=== PATIENT | female | born 1990 | race Caucasian/White ===

== ENCOUNTER 2018-04-21 20:09 | Emergency (ER) | payer BC ==
[2018-04-21] MEDS ORDERED: Ondansetron 4 MG/2 ML SDV IVPUSH ONE (21:04)
[2018-04-21] MEDS ORDERED: Sodium Chloride 0.9% 1,000 ML IV ONE ×2 (21:04→22:59)
--- NOTE | 2018-04-21 21:05 | EDM.PDOC ---
ED HPI GENERAL MEDICAL PROBLEM - General Chief Complaint: Gastrointestinal Problem Stated Complaint: NAUSEATED; 8 WEEK Time Seen by Provider: 04/21/18 21:05 Source of Information: Reports: Patient - History of Present Illness INITIAL COMMENTS - FREE TEXT/NARRATIVE: HISTORY AND PHYSICAL: History of present illness: [Patient with 8 week by ultrasound performed through [facility] followed by Dr. Hernandez, patient is G4 P 2 11 Presents with intractable nausea no fever chills sweats no chest pain shortness breath headache dizziness palpitation no bowel or complains of frequency and dysuria She has 2 normal vaginal deliveries at term no complications history of previous blighted ovum No vaginal fluid leakage low back pain and pressure spotting bleeding or discharge ] Review of systems: As per history of present illness and below otherwise all systems reviewed and negative. Past medical history: As per history of present illness and as reviewed below otherwise noncontributory. Surgical history: As per history of present illness and as reviewed below otherwise noncontributory. Social history: No reported history of drug or alcohol abuse. Family history: As per history of present illness and as reviewed below otherwise noncontributory. Physical exam: HEENT: Atraumatic, normocephalic, pupils reactive, negative for conjunctival pallor or scleral icterus, mucous membranes moist, throat clear, neck supple, nontender, trachea midline. Lungs: Clear to auscultation, breath sounds equal bilaterally, chest nontender. Heart: S1S2, regular, negative for clicks, rubs, or JVD. Abdomen: Soft, nondistended, nontender. Negative for masses or hepatosplenomegaly. Negative for costovertebral tenderness. Pelvis: Stable nontender. Genitourinary: Deferred. Rectal: Deferred. Extremities: Atraumatic, negative for cords or calf pain. Neurovascular unremarkable. Neuro: Awake, alert, oriented. Cranial nerves II through XII unremarkable. Cerebellum unremarkable. Motor and sensory unremarkable throughout. Exam nonfocal. Diagnostics: CBC CMP [UA HCG ABO type ] Patient refused blood typing and vaginal exam Therapeutics: [1 L normal saline 2 Zofran 8 mg IV Macrobid 100 by mouth twice a day #14 no refill Zofran 8 mg ] Impression: [ vomiting in ] Hematuria possible UTI culture following Definitive disposition and diagnosis as appropriate pending reevaluation and review of above. 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: Endocrine/Metabolic History: Reports: Hypothyroidism - Infectious Disease History Infectious Disease History: Reports: Chicken Pox Social & Family History - Tobacco Use Smoking Status *Q: Never Smoker - Caffeine Use Caffeine Use: Reports: None - Recreational Drug Use Recreational Drug Use: No ED ROS GENERAL - Review of Systems Review Of Systems: See Below ED EXAM, GENERAL - Physical Exam Exam: See Below Course - Vital Signs Last Recorded V/S: Last Vital Signs Temp 98.3 F 04/21/18 20:32 Pulse 96 04/21/18 20:32 Resp 16 04/21/18 20:32 BP 113/70 04/21/18 20:32 Pulse Ox 96 04/21/18 20:32 - Orders/Labs/Meds Orders: Active Orders 24 hr Category Date Time Status ABO/RH TYPE [BBK] Stat Lab 04/21/18 22:53 Ordered CULTURE URINE [RM] Stat Lab 04/21/18 21:44 Received HCG QUALITATIVE,URINE [URCHEM] Stat Lab 04/21/18 21:44 Ordered UA W/MICROSCOPIC [URIN] Stat Lab 04/21/18 21:44 Ordered Sodium Chloride 0.9% [Normal Saline] 1,000 ml Med 04/21/18 22:59 Active IV STAT Medication Orders Sodium Chloride (Normal Saline) 1,000 mls @ 999 mls/hr IV STAT ONE Stop: 04/21/18 23:59 Last Admin: 04/21/18 23:04 Dose: 999 mls/hr Labs: Laboratory Tests 04/21/18 04/21/18 04/21/18 Range/Units 21:25 21:25 21:25 WBC 16.28 H (4.0-11.0) K/uL RBC 4.35 (4.30-5.90) M/uL Hgb 13.2 (12.0-16.0) g/dL Hct 37.1 (36.0-46.0) % MCV 85.3 (80.0-98.0) fL MCH 30.3 (27.0-32.0) pg MCHC 35.6 (31.0-37.0) g/dL RDW Std Deviation 37.2 (28.0-62.0) fl RDW Coeff of Casie 12 (11.0-15.0) % Plt Count 173 (150-400) K/uL MPV 10.80 (7.40-12.00) fL Neut % (Auto) 87.4 H (48.0-80.0) % Lymph % (Auto) 7.4 L (16.0-40.0) % [place] % (Auto) 4.7 (0.0-15.0) % Eos % (Auto) 0.4 (0.0-7.0) % Baso % (Auto) 0.1 (0.0-1.5) % Neut # (Auto) 14.2 H (1.4-5.7) K/uL Lymph # (Auto) 1.2 (0.6-2.4) K/uL [place] # (Auto) 0.8 (0.0-0.8) K/uL Eos # (Auto) 0.1 (0.0-0.7) K/uL Baso # (Auto) 0.0 (0.0-0.1) K/uL Nucleated RBC % 0.0 /100WBC Nucleated RBCs # 0 K/uL Sodium 138 (136-145) mmol/L Potassium 3.7 (3.5-5.1) mmol/L Chloride 103 (98-107) mmol/L Carbon Dioxide 23.0 (21.0-32.0) mmol/L BUN 12 (7.0-18.0) mg/dL Creatinine 0.9 (0.6-1.0) mg/dL Est Cr Clr Drug Dosing 72.95 mL/min Estimated GFR (MDRD) > 60.0 ml/min Glucose 80 (74-106) mg/dL Calcium 8.9 (8.5-10.1) mg/dL Total Bilirubin 0.7 (0.2-1.0) mg/dL AST 29 (15-37) IU/L ALT 54 (14-63) IU/L Alkaline Phosphatase 51 (46-116) U/L Creatine Kinase (26-308) U/L Total Protein 7.0 (6.4-8.2) g/dL Albumin 3.9 (3.4-5.0) g/dL Globulin 3.1 (2.0-3.5) g/dL Albumin/Globulin Ratio 1.3 (1.3-2.8) HCG, Quant 119694.0 mIU/mL Urine Color Urine Appearance Urine pH (5.0-8.0) Ur Specific [place] (1.001-1.035) Urine Protein (NEGATIVE) mg/dL Urine Glucose (UA) (NEGATIVE) mg/dL Urine Ketones (NEGATIVE) mg/dL Urine Occult Blood (NEGATIVE) Urine Nitrite (NEGATIVE) Urine Bilirubin (NEGATIVE) Urine Ictotest Urine Urobilinogen (<2.0) EU/dL Ur Leukocyte Esterase (NEGATIVE) Urine RBC (0-2/HPF) Urine WBC (0-5/HPF) Ur Epithelial Cells (NONE-FEW) Urine Bacteria (NEGATIVE) Urine Mucus (NONE-MOD) Urine HCG, Qual (NEGATIVE) 04/21/18 04/21/18 04/21/18 Range/Units 21:25 21:44 21:44 WBC (4.0-11.0) K/uL RBC (4.30-5.90) M/uL Hgb (12.0-16.0) g/dL Hct (36.0-46.0) % MCV (80.0-98.0) fL MCH (27.0-32.0) pg MCHC (31.0-37.0) g/dL RDW Std Deviation (28.0-62.0) fl RDW Coeff of Casie (11.0-15.0) % Plt Count (150-400) K/uL MPV (7.40-12.00) fL Neut % (Auto) (48.0-80.0) % Lymph % (Auto) (16.0-40.0) % [place] % (Auto) (0.0-15.0) % Eos % (Auto) (0.0-7.0) % Baso % (Auto) (0.0-1.5) % Neut # (Auto) (1.4-5.7) K/uL Lymph # (Auto) (0.6-2.4) K/uL [place] # (Auto) (0.0-0.8) K/uL Eos # (Auto) (0.0-0.7) K/uL Baso # (Auto) (0.0-0.1) K/uL Nucleated RBC % /100WBC Nucleated RBCs # K/uL Sodium (136-145) mmol/L Potassium (3.5-5.1) mmol/L Chloride (98-107) mmol/L Carbon Dioxide (21.0-32.0) mmol/L BUN (7.0-18.0) mg/dL Creatinine (0.6-1.0) mg/dL Est Cr Clr Drug Dosing mL/min Estimated GFR (MDRD) ml/min Glucose (74-106) mg/dL Calcium (8.5-10.1) mg/dL Total Bilirubin (0.2-1.0) mg/dL AST (15-37) IU/L ALT (14-63) IU/L Alkaline Phosphatase (46-116) U/L Creatine Kinase 48 (26-308) U/L Total Protein (6.4-8.2) g/dL Albumin (3.4-5.0) g/dL Globulin (2.0-3.5) g/dL Albumin/Globulin Ratio (1.3-2.8) HCG, Quant mIU/mL Urine Color YELLOW Urine Appearance CLEAR Urine pH 7.0 (5.0-8.0) Ur Specific [place] 1.020 (1.001-1.035) Urine Protein TRACE (NEGATIVE) mg/dL Urine Glucose (UA) NEGATIVE (NEGATIVE) mg/dL Urine Ketones >=80 (NEGATIVE) mg/dL Urine Occult Blood LARGE H (NEGATIVE) Urine Nitrite NEGATIVE (NEGATIVE) Urine Bilirubin SMALL H (NEGATIVE) Urine Ictotest NEGATIVE Urine Urobilinogen 1.0 (<2.0) EU/dL Ur Leukocyte Esterase NEGATIVE (NEGATIVE) Urine RBC 14-18 (0-2/HPF) Urine WBC 2-4 (0-5/HPF) Ur Epithelial Cells MANY (NONE-FEW) Urine Bacteria 2+ H (NEGATIVE) Urine Mucus MODERATE (NONE-MOD) Urine HCG, Qual POSITIVE (NEGATIVE) Meds: Medications Generic Name Dose Route Start Last Admin Trade Name Freq PRN Reason Stop Dose Admin Sodium Chloride 1,000 mls @ 999 mls/hr 04/21/18 22:59 04/21/18 23:04 Normal Saline IV 04/21/18 23:59 999 mls/hr STAT ONE Administration Discontinued Medications Generic Name Dose Route Start Last Admin Trade Name Freq PRN Reason Stop Dose Admin Acetaminophen 1,000 mg 04/21/18 21:35 04/21/18 21:41 Tylenol Extra Strength PO 04/21/18 21:36 1,000 mg ONETIME ONE Administration Acetaminophen Confirm 04/21/18 21:42 04/21/18 22:00 Tylenol Extra Strength Administered 04/21/18 21:43 Not Given Dose 500 mg .ROUTE .STK-MED ONE Sodium Chloride 1,000 mls @ 999 mls/hr 04/21/18 21:04 04/21/18 21:30 Normal Saline IV 04/21/18 22:04 999 mls/hr STAT ONE Administration Ondansetron HCl 8 mg 04/21/18 21:04 04/21/18 21:30 Zofran IVPUSH 04/21/18 21:05 8 mg ONETIME ONE Administration Departure - Departure Time of Disposition: 23:26 Disposition: Home, Self-Care 01 Condition: Good Clinical Impression: Vomiting of - Discharge Information Referrals: PCP,None [Primary Care Provider] - Forms: ED Department Discharge Additional Instructions: Medication as prescribed Return if symptoms persist or worsen Follow-up with OB as scheduled sooner as needed The following information is given to patients seen in the emergency department who are being discharged to home. This information is to outline your options for follow-up care. We provide all patients seen in our emergency department with a follow-up referral. The need for follow-up, as well as the timing and circumstances, are variable depending upon the specifics of your emergency department visit. If you don't have a primary care physician on staff, we will provide you with a referral. We always advise you to contact your personal physician following an emergency department visit to inform them of the circumstance of the visit and for follow-up with them and/or the need for any referrals to a consulting specialist. The emergency department will also refer you to a specialist when appropriate. This referral assures that you have the opportunity for follow-up care with a specialist. All of these measure are taken in an effort to provide you with optimal care, which includes your follow-up. Under all circumstances we always encourage you to contact your private physician who remains a resource for coordinating your care. When calling for follow-up care, please make the office aware that this follow-up is from your recent emergency room visit. If for any reason you are refused follow-up, please contact the [facility] emergency department at and asked to speak to the emergency department charge nurse. - My Orders Last 24 Hours: My Active Orders 04/21/18 21:44 CULTURE URINE [RM] Stat HCG QUALITATIVE,URINE [URCHEM] Stat UA W/MICROSCOPIC [URIN] Stat 04/21/18 22:53 ABO/RH TYPE [BBK] Stat 04/21/18 22:59 Sodium Chloride 0.9% [Normal Saline] 1,000 ml IV STAT - Assessment/Plan Last 24 Hours: My Active Orders 04/21/18 21:44 CULTURE URINE [RM] Stat HCG QUALITATIVE,URINE [URCHEM] Stat UA W/MICROSCOPIC [URIN] Stat 04/21/18 22:53 ABO/RH TYPE [BBK] Stat 04/21/18 22:59 Sodium Chloride 0.9% [Normal Saline] 1,000 ml IV STAT
[2018-04-21] MEDS ORDERED: Acetaminophen 500 MG Tab PO ONE (21:35)
[2018-04-21] MEDS ORDERED: Acetaminophen 500 MG Tab ONE (21:42)
[2018-04-21 22:19] LABS: CHLORIDE,CL 103 mmol/L (98-107); SODIUM,NA 138 mmol/L (136-145)
[2018-04-21] MEDS ORDERED: Nitrofurantoin Monohydrate/Macrocrystalline 100 MG Cap PO ONE (23:30)
== END 2018-04-21 23:56 | disposition home or self-care (01) ==
LOC: MW.ED 20:09
DX: O21.8 Other vomiting complicating pregnancy (principal); Z3A.08 8 weeks gestation of pregnancy; Z79.899 Other long term (current) drug therapy
CPT/HCPCS: 36415; 80053; 81001; 81025; 82550; 84702; 85025; 87086; 96361; 96374; 99284; A9270; J2405; J7040; 99283

== ENCOUNTER 2018-11-21 02:37 | Inpatient (IN) | payer BC ==
[2018-11-21] MEDS ORDERED: Nalbuphine 10 MG/1 ML Vial IVPUSH PRN (02:57)
[2018-11-21] MEDS ORDERED: Methylergonovine 0.2 MG/1 ML Amp IM PRN (02:57)
[2018-11-21] MEDS ORDERED: Carboprost Tromethamine 250 MCG/1 ML Amp IM PRN (02:57)
[2018-11-21] MEDS ORDERED: Sodium Chloride 0.9% 2.5 ML Syringe FLUSH PRN (02:57)
[2018-11-21] MEDS ORDERED: Sodium Chloride 0.9% 10 ML Syringe FLUSH PRN (02:57)
[2018-11-21] MEDS ORDERED: Tranexamic Acid 1,000 MG in Sodium Chloride 0.9% 100 ML IV PRN (02:57)
[2018-11-21] MEDS ORDERED: Lidocaine 1% 50 ML MDV INJECT PRN (02:57)
[2018-11-21] MEDS ORDERED: Water For Irrigation,Sterile 1,000 ML Container IRR PRN (02:57)
[2018-11-21] MEDS ORDERED: Misoprostol 200 MCG Tab PO PRN (02:57)
[2018-11-21] MEDS ORDERED: Butorphanol 1 MG/ML SDV IVPUSH PRN (02:57)
[2018-11-21] MEDS ORDERED: Terbutaline 1 MG/ML SDV SUBCUT PRN (03:00)
[2018-11-21] MEDS ORDERED: Oxytocin/0.9 % Sodium Chloride 30 UNIT/500 ML BAG IV SCH ×2 (03:00)
[2018-11-21] MEDS ORDERED: Misoprostol 25 MCG (1/4 of 100 MCG) Tab VAG PRN ×2 (03:00)
[2018-11-21] MEDS: Lactated Ringers 1,000 ML IV SCH ×2 (08:35→09:53)
[2018-11-21] MEDS ORDERED: diphenhydrAMINE 50 MG/ML SDV IVPUSH PRN (08:47)
[2018-11-21] MEDS ORDERED: fentaNYL 100 MCG/2 ML SDV ONE (09:24)
[2018-11-21] MEDS ORDERED: Ropivacaine HCl/PF 100 ML ONE (09:25)
--- NOTE | 2018-11-21 10:19 | PCM.PREANE ---
Preanesthetic Assessment - Anesthesia/Transfusion/Family Hx Anesthesia History: Prior Anesthesia Without Reaction Family History of Anesthesia Reaction: No Transfusion History: No Prior Transfusion(s) - Review of Systems General: Other (08/20 pain with contractions) Pulmonary: No Symptoms Cardiovascular: No Symptoms Gastrointestinal: No Symptoms Neurological: No Symptoms Other: Reports: Anxiety - Physical Assessment NPO Status Date: 11/21/18 NPO Status Time: 03:00 (sips/chips) Blood Pressure: 116/68 Height: 5 ft 2 in Weight: 146 lb ASA Class: 2 Mental Status: Alert & Oriented x3 Airway Class: Mallampati = 2 Dentition: Reports: Normal Dentition Thyro-Mental Finger Breadths: 3 Mouth Opening Finger Breadths: 3 ROM/Head Extension: Full Lungs: Clear to Auscultation, Normal Respiratory Effort Cardiovascular: Regular Rate, Regular Rhythm - Lab Values: Laboratory Last Values WBC 8.81 K/uL (4.0-11.0) 11/21/18 03:10 RBC 3.91 M/uL (4.30-5.90) L 11/21/18 03:10 Hgb 10.8 g/dL (12.0-16.0) L 11/21/18 03:10 Hct 32.8 % (36.0-46.0) L 11/21/18 03:10 MCV 83.9 fL (80.0-98.0) 11/21/18 03:10 MCH 27.6 pg (27.0-32.0) 11/21/18 03:10 MCHC 32.9 g/dL (31.0-37.0) 11/21/18 03:10 RDW Std Deviation 41.3 fl (28.0-62.0) 11/21/18 03:10 RDW Coeff of Casie 14 % (11.0-15.0) 11/21/18 03:10 Plt Count 141 K/uL (150-400) L 11/21/18 03:10 MPV 10.60 fL (7.40-12.00) 11/21/18 03:10 Nucleated RBC % 0.0 /100WBC 11/21/18 03:10 Nucleated RBCs # 0 K/uL 11/21/18 03:10 Blood Type O POSITIVE 11/21/18 03:10 Antibody Screen NEGATIVE 11/21/18 03:10 - Allergies Allergies/Adverse Reactions: Allergies Allergy/AdvReac Type Severity Reaction Status Date / Time No Known Allergies Allergy Verified 04/21/18 20:35 - Blood Blood Available: No Product(s) Available: None - Anesthesia Plan Free Text/Narrative:: Labor Epidural with possible SAB if pt progress too quickly - Acknowledgements Anesthesia Type Planned: Spinal, Epidural Pt an Appropriate Candidate for the Planned Anesthesia: Yes Alternatives and Risks of Anesthesia Discussed w Pt/Guardian: Yes Pt/Guardian Understands and Agrees with Anesthesia Plan: Yes PreAnesthesia Questionnaire - Past Health History Medical/Surgical History: Denies 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: 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/Metabolic History: Reports: Hypothyroidism - Infectious Disease History Infectious Disease History: Reports: Chicken Pox - SUBSTANCE USE Smoking Status *Q: Never Smoker Second Hand Smoke Exposure: No Recreational Drug Use History: No - HOME MEDS Home Medications: Home Meds Levothyroxine Sodium [Levoxyl] 50 mcg PO DAILY 04/21/18 [History] Ondansetron [Zofran ODT] 4 mg PO Q6H PRN 04/21/18 [History] Pnv No.95/Ferrous Fum/Folic AC [ Multivitamin Tablet] 1 each PO DAILY [History] - CURRENT (IN HOUSE) MEDS Current Meds: Current Medications Butorphanol Tartrate (Stadol) 1 mg IVPUSH Q1H PRN PRN Reason: Pain Carboprost Tromethamine (Hemabate Ds) 250 mcg IM ASDIRECTED PRN PRN Reason: Post Hemorrhage Diphenhydramine HCl (Benadryl) 25 mg IVPUSH Q6H PRN PRN Reason: Itching Lactated Ringer's (Ringers, Lactated) 1,000 mls @ 150 mls/hr IV ASDIRECTED OSVALDO Last Admin: 11/21/18 09:53 Dose: 150 mls/hr Oxytocin/Sodium Chloride (Oxytocin 30 Unit/500 Ml-Ns) 30 unit in 500 mls @ 500 mls/hr IV TITRATE OSVALDO Tranexamic Acid 1,000 mg/ (Sodium Chloride) 110 mls @ 660 mls/hr IV ONETIME PRN PRN Reason: Bleeding Oxytocin/Sodium Chloride (Oxytocin 30 Unit/500 Ml-Ns) 30 unit in 500 mls @ 2 mls/hr IV TITRATE OSVALDO; Protocol Last Titration: 11/21/18 09:37 Dose: 1 mls/hr Lidocaine HCl (Xylocaine 1%) 50 ml INJECT ONETIME PRN PRN Reason: Laceration repair Methylergonovine Maleate (Methergine) 0.2 mg IM ASDIRECTED PRN PRN Reason: Post Hemorrhage Misoprostol (Cytotec) 200 mcg PO ONETIME PRN PRN Reason: Post Hemorrhage Misoprostol (Cytotec) 25 mcg VAG ONETIME PRN PRN Reason: Cervical Ripening Misoprostol (Cytotec) 25 mcg VAG Q4H PRN PRN Reason: Cervical Ripening Last Admin: 11/21/18 03:41 Dose: 25 mcg Nalbuphine HCl (Nubain) 10 mg IVPUSH Q1H PRN PRN Reason: Pain (severe 7-10) Last Admin: 11/21/18 08:54 Dose: 10 mg Sodium Chloride (Saline Flush) 10 ml FLUSH ASDIRECTED PRN PRN Reason: Keep Vein Open Sodium Chloride (Saline Flush) 2.5 ml FLUSH ASDIRECTED PRN PRN Reason: Keep Vein Open Sterile Water (Sterile Water For Irrigation) 1,000 ml IRR ASDIRECTED PRN PRN Reason: delivery Terbutaline Sulfate (Brethine) 0.25 mg SUBCUT ASDIRECTED PRN PRN Reason: Tacysystole Discontinued Medications Fentanyl (Sublimaze) Confirm Administered Dose 100 mcg .ROUTE .STK-MED ONE Stop: 11/21/18 09:25 Ropivacaine (Naropin 0.2%) Confirm Administered Dose 100 mls @ as directed .ROUTE .STK-MED ONE Stop: 11/21/18 09:26
--- NOTE | 2018-11-21 10:30 | PCM.DEL ---
L & D Note - General Info Date of Service: 11/21/18 - Delivery Note Labor: Induced by Oxytocin Cervical Ripening Method: Prostaglandin E2 Delivery Outcome: Livebirth Infant Delivery Method: Spontaneous Vaginal Delivery-Single Infant Delivery Mode: Spontaneous Presentation: Right Occiput Anterior (SHARITA) Nuchal Cord: Present, Reduced Prep: Povidone-Iodine (Betadine Anesthesia Type: Epidural Amniotic Fluid Description: Clear Episiotomy Type: None Laceration: 1st Degree, Perineal Suture type: Vicryl Suture size: 3-0 Placenta: Intact, Spontaneous Cord: 3 Vessels Resuscitation Needed: No Score 1 min: 9 Score 5 min: 9 Induction Criteria - Jeffries Score Jeffries Score Dilation: 1-2 cm Jeffries Score Effacement: 40-50% Jeffries Score 's Station: -3 Jeffries Score Consistency: Firm Jeffries Score Cervix Position: Midposition Jeffries Score Total: 3 Jeffries Score Presenting Part: Reports: Cephalic - Induction Gestational Age >/= 39 wks: No Medical Indication: Suspected cholestasis of Reassuring Monitoring Strip: Yes Absence of Tachy Systole: Yes - General Info Date of Service: 11/21/18 - Patient Data Vitals - Most Recent: Last Vital Signs Temp Pulse Resp BP 116/68 11/21/18 10:18 Pulse Ox Weight - Most Recent: 146 lb Lab Results Last 24 Hours: Laboratory Results - last 24 hr 11/21/18 11/21/18 Range/Units 03:10 03:10 WBC 8.81 (4.0-11.0) K/uL RBC 3.91 L (4.30-5.90) M/uL Hgb 10.8 L (12.0-16.0) g/dL Hct 32.8 L (36.0-46.0) % MCV 83.9 (80.0-98.0) fL MCH 27.6 (27.0-32.0) pg MCHC 32.9 (31.0-37.0) g/dL RDW Std Deviation 41.3 (28.0-62.0) fl RDW Coeff of Casie 14 (11.0-15.0) % Plt Count 141 L (150-400) K/uL MPV 10.60 (7.40-12.00) fL Nucleated RBC % 0.0 /100WBC Nucleated RBCs # 0 K/uL Blood Type O POSITIVE Antibody Screen NEGATIVE Med Orders - Current: Current Medications Butorphanol Tartrate (Stadol) 1 mg IVPUSH Q1H PRN PRN Reason: Pain Carboprost Tromethamine (Hemabate Ds) 250 mcg IM ASDIRECTED PRN PRN Reason: Post Hemorrhage Diphenhydramine HCl (Benadryl) 25 mg IVPUSH Q6H PRN PRN Reason: Itching Lactated Ringer's (Ringers, Lactated) 1,000 mls @ 150 mls/hr IV ASDIRECTED OSVALDO Last Admin: 11/21/18 09:53 Dose: 150 mls/hr Oxytocin/Sodium Chloride (Oxytocin 30 Unit/500 Ml-Ns) 30 unit in 500 mls @ 500 mls/hr IV TITRATE OSVALDO Tranexamic Acid 1,000 mg/ (Sodium Chloride) 110 mls @ 660 mls/hr IV ONETIME PRN PRN Reason: Bleeding Oxytocin/Sodium Chloride (Oxytocin 30 Unit/500 Ml-Ns) 30 unit in 500 mls @ 2 mls/hr IV TITRATE [facility]; Protocol Last Titration: 11/21/18 09:37 Dose: 1 mls/hr Lidocaine HCl (Xylocaine 1%) 50 ml INJECT ONETIME PRN PRN Reason: Laceration repair Methylergonovine Maleate (Methergine) 0.2 mg IM ASDIRECTED PRN PRN Reason: Post Hemorrhage Misoprostol (Cytotec) 200 mcg PO ONETIME PRN PRN Reason: Post Hemorrhage Misoprostol (Cytotec) 25 mcg VAG ONETIME PRN PRN Reason: Cervical Ripening Misoprostol (Cytotec) 25 mcg VAG Q4H PRN PRN Reason: Cervical Ripening Last Admin: 11/21/18 03:41 Dose: 25 mcg Nalbuphine HCl (Nubain) 10 mg IVPUSH Q1H PRN PRN Reason: Pain (severe 7-10) Last Admin: 11/21/18 08:54 Dose: 10 mg Sodium Chloride (Saline Flush) 10 ml FLUSH ASDIRECTED PRN PRN Reason: Keep Vein Open Sodium Chloride (Saline Flush) 2.5 ml FLUSH ASDIRECTED PRN PRN Reason: Keep Vein Open Sterile Water (Sterile Water For Irrigation) 1,000 ml IRR ASDIRECTED PRN PRN Reason: delivery Terbutaline Sulfate (Brethine) 0.25 mg SUBCUT ASDIRECTED PRN PRN Reason: Tacysystole Discontinued Medications Fentanyl (Sublimaze) Confirm Administered Dose 100 mcg .ROUTE .STK-MED ONE Stop: 11/21/18 09:25 Ropivacaine (Naropin 0.2%) Confirm Administered Dose 100 mls @ as directed .ROUTE .STK-MED ONE Stop: 11/21/18 09:26 - Problem List & Annotations (1) Vaginal delivery SNOMED Code(s): 488078359 Code(s): O80 - ENCOUNTER FOR FULL-TERM UNCOMPLICATED DELIVERY Status: Acute Current Visit: Yes - Problem List Review Problem List Initiated/Reviewed/Updated: Yes - My Orders Last 24 Hours: My Active Orders 11/21/18 02:57 Patient Status [ADT] Routine Heart Tones [RC] CONTINUOUS Non Stress Test [RC] PER UNIT ROUTINE May Shower [RC] ASDIRECTED Notify Provider [RC] PRN Up ad Shara [RC] ASDIRECTED Vaginal Exam [RC] PRN Vital Signs [RC] PER UNIT ROUTINE Butorphanol [Stadol] 1 mg IVPUSH Q1H PRN Carboprost Tromethamine [Hemabate DS] 250 mcg IM ASDIRECTED PRN Lidocaine 1% [Xylocaine 1%] 50 ml INJECT ONETIME PRN Methylergonovine [Methergine] 0.2 mg IM ASDIRECTED PRN Nalbuphine [Nubain] 10 mg IVPUSH Q1H PRN Sodium Chloride 0.9% [Saline Flush] 10 ml FLUSH ASDIRECTED PRN Sodium Chloride 0.9% [Saline Flush] 2.5 ml FLUSH ASDIRECTED PRN Tranexamic Acid [Cyklokapron] 1,000 mg Sodium Chloride 0.9% [Normal Saline] 100 ml IV ONETIME Water For Irrigation,Sterile [Sterile Water for Irrigation] 1,000 ml IRR ASDIRECTED PRN miSOPROStol [Cytotec] 200 mcg PO ONETIME PRN Scalp Electrode [WOMSER] Per Unit Routine Peripheral IV Insertion Adult [OM.PC] Routine Resuscitation Status Routine 11/21/18 03:00 Communication Order [RC] ASDIRECTED Communication Order [RC] ASDIRECTED Communication Order [RC] ASDIRECTED Notify Provider [RC] PRN Notify Provider [RC] PRN Notify Provider [RC] STAT Oxygen Therapy [RC] ASDIRECTED Lactated Ringers [Ringers, Lactated] 1,000 ml IV ASDIRECTED Oxytocin/0.9 % Sodium Chloride [Oxytocin 30 Unit/500 ML-NS] 30 unit in 500 ml IV TITRATE Oxytocin/0.9 % Sodium Chloride [Oxytocin 30 Unit/500 ML-NS] 30 unit in 500 ml IV TITRATE Terbutaline [Brethine] 0.25 mg SUBCUT ASDIRECTED PRN miSOPROStol [Cytotec] 25 mcg VAG ONETIME PRN miSOPROStol [Cytotec] 25 mcg VAG Q4H PRN Medication Administration Instruction [OM.PC] Q3H 11/21/18 08:47 diphenhydrAMINE [Benadryl] 25 mg IVPUSH Q6H PRN 11/21/18 Breakfast Clear Liquid Diet [DIET]
[2018-11-21] MEDS ORDERED: Witch Hazel Medicated Pads 40/Jar TOP PRN (10:34)
[2018-11-21] MEDS ORDERED: oxyCODONE 5 MG Tab PO PRN (10:34)
[2018-11-21] MEDS ORDERED: Lanolin 100% Cream 7 GM Tube TOP PRN (10:34)
[2018-11-21] MEDS ORDERED: Ibuprofen 400 MG Tab PO PRN (10:34)
[2018-11-21] MEDS ORDERED: Docusate Sodium 100 MG Cap PO PRN (10:34)
[2018-11-21] MEDS ORDERED: Bisacodyl 10 MG Supp RECTAL PRN (10:34)
[2018-11-21] MEDS ORDERED: Benzocaine/Menthol 20%-0.5% Spray 78 GM Cannister TOP PRN (10:34)
[2018-11-21] MEDS ORDERED: Acetaminophen 500 MG Tab PO PRN ×2 (10:34)
--- NOTE | 2018-11-21 12:54 | OR ---
SURGEON: Bretha Mims MD DATE OF PROCEDURE: 11/21/2018 PREOPERATIVE DIAGNOSES: 1. Term at 38 weeks and 6 days gestation. 2. Induction of labor for suspected cholestasis of . POSTOPERATIVE DIAGNOSES: 1. Term at 38 weeks and 6 days gestation. 2. Induction of labor for suspected cholestasis of . 3. Delivered. PROCEDURES: 1. Spontaneous vaginal delivery. 2. Repair of perineal laceration. ANESTHESIA: Epidural. ESTIMATED BLOOD LOSS: 100 mL. COMPLICATIONS: None. DISPOSITION: Mother and baby are stable in Labor and Delivery room, bonding. FINDINGS: Female , weight 3150 g, scores of 9 and 9 at 1 and 5 minutes respectively. Grossly normal placenta with 3-vessel cord. First-degree perineal laceration. PROCEDURE IN DETAIL: The patient is a 28-year-old G4, P2-0-1-2 who was admitted overnight for induction of labor at 38 weeks and 6 days gestation for suspected cholestasis of . The patient has been complaining of generalized pruritus, worse on the soles of her feet and the palms of her hands over the last three days, not relieved with regular Benadryl. She denies any rashes and none was evident on examination, and she did not have any exposure to any obnoxious substances or any new substances that she was aware of. Her liver function test was normal, but we were still waiting on the bile acid results which would take about two weeks to be resulted. Given the fact that she is term with symptoms highly suspicious for cholestasis of , I recommended induction of labor. She received one dose of Cytotec 25 mcg for cervical ripening, followed by artificial rupture of membrane, which was performed this morning at 3cm dilated with clear fluid returned. She then progressed to 5 cm and received epidural for pain management. During the placement epidural, she started complaining of increased rectal pressure, reexamined and found to be fully dilated at +2 station. After the epidural was inserted and effective, she was then coached on pushing and she commenced active pushing. She pushed quite well bringing the baby's head down to a +4 station and was set up for delivery in modified dorsal lithotomy position. She had a spontaneous vaginal delivery of a live female infant in right occipitoanterior position with loose nuchal cord, which was reduced after restitution. Clear amniotic fluid at delivery. There were no difficulties delivering the anterior and posterior shoulders and the rest of the baby. The baby was vigorous and cried spontaneously at . Baby was delivered onto the maternal abdomen with the nursery nurse in attendance, drying the baby. Delayed cord clamping was observed and the cord was subsequently cut by the sister of the patient. Cord blood and gas samples were obtained. With delivery of the infant, oxytocin infusion was converted to titration for active management of third stage of labor. Placenta was delivered spontaneously by controlled cord traction, appeared to be complete and intact. Examination of the perineum, vaginal mena and cervix revealed a small first- degree perineal laceration, which was approximated with 3-0 Vicryl and was hemostatic post repair. Uterine massage was performed. Uterus was found to be well contracted below the umbilicus. The patient tolerated the procedure well. Instrument and needle counts were correct at the end of the delivery. ADUMVIV / OPALL /[id number]
--- NOTE | 2018-11-21 13:59 | PCM48HPAN ---
Post Anesthesia Note - EVALUATION WITHIN 48HRS OF ANESTHETIC Vital Signs in Normal Range: Yes Patient Participated in Evaluation: Yes Respiratory Function Stable: Yes Airway Patent: Yes Cardiovascular Function Stable: Yes Hydration Status Stable: Yes Pain Control Satisfactory: Yes Nausea and Vomiting Control Satisfactory: Yes Mental Status Recovered: Yes Blood Pressure: 116/68 - COMMENTS/OBSERVATIONS Free Text/Narrative:: Pt doing well post epidural with no complaints, although she has not been out of bed at this time.
[2018-11-21] MEDS ORDERED: hydrOXYzine Pamoate 25 MG Cap PO ONE (15:31)
[2018-11-21] MEDS ORDERED: Ondansetron 4 MG/2 ML SDV IVPUSH ONE (15:31)
[2018-11-21] MEDS: Ibuprofen 800 MG Tab PO PRN (20:59)
[2018-11-22] MEDS: Ibuprofen 800 MG Tab PO PRN (05:18)
--- NOTE | 2018-11-22 08:16 | PCM.PNPP ---
- General Info Date of Service: 11/22/18 Functional Status: Reports: Pain Controlled, Tolerating Diet, Ambulating, Urinating - Review of Systems General: Reports: Malaise. Denies: Fever HEENT: Reports: Headaches Pulmonary: Denies: Shortness of Breath, Pleuritic Chest Pain Cardiovascular: Denies: Chest Pain, Palpitations, Dyspnea on Exertion Gastrointestinal: Denies: Abdominal Pain Genitourinary: Denies: Dysuria, Incontinence, Retention - General Info Date of Service: 11/22/18 - Patient Data Vital Signs - Most Recent: Last Vital Signs Temp 36.4 C 11/22/18 05:00 Pulse 68 11/22/18 05:00 Resp 16 11/22/18 05:00 BP 110/61 11/22/18 05:00 Pulse Ox 96 11/22/18 05:00 Weight - Most Recent: 146 lb Lab Results - Last 24 Hours: Laboratory Results - last 24 hr 11/21/18 11/21/18 11/22/18 Range/Units 10:09 10:09 06:15 Hgb 9.6 L (12.0-16.0) g/dL Hct 29.7 L (36.0-46.0) % Cord ABG pH 7.331 (7.18-7.38) Cord ABG Base Excess -6 (-10--2) Cord VBG pH 7.216 L 7.216 L (7.25-7.45) Cord VBG Base Excess -8 -8 (-10--2) Med Orders - Current: Current Medications Acetaminophen (Tylenol Extra Strength) 500 mg PO Q4H PRN PRN Reason: Pain Acetaminophen (Tylenol Extra Strength) 1,000 mg PO Q4H PRN PRN Reason: Pain Last Admin: 11/22/18 01:32 Dose: 1,000 mg Benzocaine/Menthol (Dermoplast Pain Relief 20%-0.5% [place]) 78 gm TOP ASDIRECTED PRN PRN Reason: Perineal Comfort Measure Last Admin: 11/21/18 16:22 Dose: 1 can Bisacodyl (Dulcolax) 10 mg RECTAL ONETIME PRN PRN Reason: Constipation Docusate Sodium (Colace) 100 mg PO BID PRN PRN Reason: Constipation Last Admin: 11/21/18 20:58 Dose: 100 mg Emollient Ointment (Lansinoh Hpa) 0 gm TOP ASDIRECTED PRN PRN Reason: Sore Nipples Ibuprofen (Motrin) 400 mg PO Q4H PRN PRN Reason: Pain Ibuprofen (Motrin) 800 mg PO Q6H PRN PRN Reason: Pain Last Admin: 11/22/18 05:18 Dose: 800 mg Oxycodone HCl (Oxycodone) 5 mg PO Q2H PRN PRN Reason: Pain Witch Thalia (Tucks) 1 pad TOP ASDIRECTED PRN PRN Reason: comfort care Last Admin: 11/21/18 16:24 Dose: 1 box Discontinued Medications Butorphanol Tartrate (Stadol) 1 mg IVPUSH Q1H PRN PRN Reason: Pain Carboprost Tromethamine (Hemabate Ds) 250 mcg IM ASDIRECTED PRN PRN Reason: Post Hemorrhage Diphenhydramine HCl (Benadryl) 25 mg IVPUSH Q6H PRN PRN Reason: Itching Fentanyl (Sublimaze) Confirm Administered Dose 100 mcg .ROUTE .STK-MED ONE Stop: 11/21/18 09:25 Hydroxyzine Pamoate (Vistaril) 50 mg PO ONETIME ONE Stop: 11/21/18 15:32 Last Admin: 11/21/18 15:49 Dose: 50 mg Lactated Ringer's (Ringers, Lactated) 1,000 mls @ 150 mls/hr IV ASDIRECTED OSVALDO Last Admin: 11/21/18 09:53 Dose: 150 mls/hr Oxytocin/Sodium Chloride (Oxytocin 30 Unit/500 Ml-Ns) 30 unit in 500 mls @ 500 mls/hr IV TITRATE OSVALDO Last Admin: 11/21/18 10:10 Dose: 500 mls/hr Tranexamic Acid 1,000 mg/ (Sodium Chloride) 110 mls @ 660 mls/hr IV ONETIME PRN PRN Reason: Bleeding Oxytocin/Sodium Chloride (Oxytocin 30 Unit/500 Ml-Ns) 30 unit in 500 mls @ 2 mls/hr IV TITRATE OSVALDO; Protocol Last Titration: 11/21/18 10:07 Dose: 2 munits/min, 2 mls/hr Ropivacaine (Naropin 0.2%) Confirm Administered Dose 100 mls @ as directed .ROUTE .STK-MED ONE Stop: 11/21/18 09:26 Lidocaine HCl (Xylocaine 1%) 50 ml INJECT ONETIME PRN PRN Reason: Laceration repair Methylergonovine Maleate (Methergine) 0.2 mg IM ASDIRECTED PRN PRN Reason: Post Hemorrhage Misoprostol (Cytotec) 200 mcg PO ONETIME PRN PRN Reason: Post Hemorrhage Misoprostol (Cytotec) 25 mcg VAG ONETIME PRN PRN Reason: Cervical Ripening Misoprostol (Cytotec) 25 mcg VAG Q4H PRN PRN Reason: Cervical Ripening Last Admin: 11/21/18 03:41 Dose: 25 mcg Nalbuphine HCl (Nubain) 10 mg IVPUSH Q1H PRN PRN Reason: Pain (severe 7-10) Last Admin: 11/21/18 08:54 Dose: 10 mg Ondansetron HCl (Zofran) 4 mg IVPUSH ONETIME ONE Stop: 11/21/18 15:32 Last Admin: 11/21/18 15:51 Dose: 4 mg Sodium Chloride (Saline Flush) 10 ml FLUSH ASDIRECTED PRN PRN Reason: Keep Vein Open Sodium Chloride (Saline Flush) 2.5 ml FLUSH ASDIRECTED PRN PRN Reason: Keep Vein Open Sterile Water (Sterile Water For Irrigation) 1,000 ml IRR ASDIRECTED PRN PRN Reason: delivery Terbutaline Sulfate (Brethine) 0.25 mg SUBCUT ASDIRECTED PRN PRN Reason: Tacysystole - Interaction Infant Disposition, : [place] in Room with Family Infant Interaction: Not Applicable Feeding: Breastfed ; Nursed Well Support Person: - Recovery Exam Fundal Level: At Umbilicus Fundal Placement: Midline Lochia Amount: Small Lochia Color: Rubra/Red Episiotomy/Laceration: Approximated Bladder Status: Nonpalpable - Exam General: Alert, Oriented HEENT: Pupils Equal Lungs: Clear to Auscultation, Normal Respiratory Effort Cardiovascular: Regular Rate, Regular Rhythm GI/Abdominal Exam: Normal Bowel Sounds, Soft, Non-Tender Extremities: Non-Tender, Pedal Edema Skin: Warm - Problem List & Annotations (1) Vaginal delivery SNOMED Code(s): 167017479 Code(s): O80 - ENCOUNTER FOR FULL-TERM UNCOMPLICATED DELIVERY Status: Acute Current Visit: Yes - Problem List Review Problem List Initiated/Reviewed/Updated: Yes - My Orders Last 24 Hours: My Active Orders 11/21/18 10:34 Patient Status [ADT] Routine May Shower [RC] ASDIRECTED Up ad Shara [RC] ASDIRECTED Vital Signs [RC] PER UNIT ROUTINE Acetaminophen [Tylenol Extra Strength] 1,000 mg PO Q4H PRN Acetaminophen [Tylenol Extra Strength] 500 mg PO Q4H PRN Benzocaine/Menthol [Dermoplast Pain Relief 20%-0.5% [place]] 78 gm TOP ASDIRECTED PRN Bisacodyl [Dulcolax] 10 mg RECTAL ONETIME PRN Docusate Sodium [Colace] 100 mg PO BID PRN Ibuprofen [Motrin] 400 mg PO Q4H PRN Ibuprofen [Motrin] 800 mg PO Q6H PRN Lanolin [Lansinoh HPA] See Dose Instructions TOP ASDIRECTED PRN Witch Thalia [Tucks] 1 pad TOP ASDIRECTED PRN oxyCODONE 5 mg PO Q2H PRN Assess Lochia [WOMSER] Per Unit Routine Assess Uterine Involution [WOMSER] Per Unit Routine Breast Pump [WOMSER] Per Unit Routine Peripheral IV Discontinue [OM.PC] Routine Resuscitation Status Routine 11/21/18 10:36 Perineal Care [OM.PC] Per Unit Routine 11/21/18 Lunch Regular Diet [DIET] - Assessment Assessment:: PPd#1 s/p , stable and afebrile Clinically stable for discharge today - Plan Plan:: Discharge instructions reviewed. Nothing in the vagina for 6 weeks Bleeding and infection precautions reviewed Continue PNV depression S/S reviewed, encouraged to call with concerns Follow up in 6 weeks at [facility]
== END 2018-11-22 12:54 | disposition home or self-care (01) | DRG 560 ==
LOC: MW.OBCHECK 02:37 → MW.OB 02:40 → MW.OBCHECK 02:57 → OBSVTOIN 10:08
PROVIDERS: ADMIT Obstetrics & Gynecology; ATTEND Obstetrics & Gynecology
PROC: 10E0XZZ Delivery of Products of Conception, External Approach (ICD-10-PCS; principal; 2018-11-21)
PROC: 3E0P7VZ Introduction of Hormone into Female Reproductive, Via Natural or Artificial Opening (ICD-10-PCS; 2018-11-21)
PROC: 10907ZC Drainage of Amniotic Fluid, Therapeutic from Products of Conception, Via Natural or Artificial Opening (ICD-10-PCS; 2018-11-21)
PROC: 0HQ9XZZ Repair Perineum Skin, External Approach (ICD-10-PCS; 2018-11-21)
PROC: 00HU33Z Insertion of Infusion Device into Spinal Canal, Percutaneous Approach (ICD-10-PCS; 2018-11-21)
PROC: 6A550ZT Pheresis of Cord Blood Stem Cells, Single (ICD-10-PCS; 2018-11-21)
DX: O26.62 Liver and biliary tract disorders in childbirth (principal); K83.1 Obstruction of bile duct; O26.893 Other specified pregnancy related conditions, third trimester; Z3A.38 38 weeks gestation of pregnancy; Z37.0 Single live birth
CPT/HCPCS: 36415; 59025; 59409; 82803; 85014; 85018; 85027; 86850; 86900; 86901; A9270-GY; J2300; J2405; J2590; J7120